=== PATIENT | female | born 1970 | race African-American/Black ===

== ENCOUNTER 2025-08-07 20:50 | Emergency (ER) | payer OTHER ==
[~2025-08-07] VITALS: Ht 160 cm; Wt 87.0 kg
[2025-08-07 21:19] VITALS: O2SAT 100
[2025-08-07] MEDS: HYDROCODONE/ACETAMINOPHEN 10/325MG TABLET PO ONE (22:52)
[2025-08-07] MEDS ORDERED: HYDR-4001 MT (23:36)
[2025-08-07] MEDS ORDERED: IBUP-2030 MT (23:37)
[2025-08-08 00:18] VITALS: BP 130/78; PULSE 72; RESP 15; TEMP 36.9; O2SAT 100
== END 2025-08-08 00:22 | disposition home or self-care (01) ==
LOC: ER 20:50
DX: S52.122A Displaced fracture of head of left radius, initial encounter for closed fracture (principal); I10 Essential (primary) hypertension; M19.022 Primary osteoarthritis, left elbow; Z55.6 Problems related to health literacy; W01.0XXA Fall on same level from slipping, tripping and stumbling without subsequent striking against object, initial encounter; Y93.89 Activity, other specified; Y92.009 Unspecified place in unspecified non-institutional (private) residence as the place of occurrence of the external cause; Y99.8 Other external cause status
CPT/HCPCS: 29105; 73060; 73080; 73090; 73110; 99284